=== PATIENT | female | born 1950 | race Caucasian/White ===

== ENCOUNTER → 2024-04-28 16:45 | Outpatient (BNVA) | payer SELFPAY | PROVIDERS: Visit Provider Nurse Practitioner Family | DX: R53.83 Other fatigue (principal); M54.50 Low back pain, unspecified; G89.29 Other chronic pain; G47.00 Insomnia, unspecified; K59.01 Slow transit constipation; A69.20 Lyme disease, unspecified | CPT/HCPCS: 80053; 82607; 84443; 85025; 86618; 86666; 86757 ==